=== PATIENT | female | born 1960 | race Caucasian/White ===

== ENCOUNTER 2017-03-25 10:22 | Emergency (ER) | payer OTHER ==
[2017-03-25 10:37] VITALS: O2SAT 98
[2017-03-25] MEDS ORDERED: Naproxen 550 mg Tab PO STA (10:57)
--- NOTE | 2017-03-25 11:04 | C.PDOC ---
History Of Present Illness 57 yr old female presents to the ER with complaints of back pain for the past 5 days. Patient reports the pain is right sided and feels like her sciatica. Patient states she missed work due to the pain is requesting a note. Denies new trauma, saddle anesthesia, fever, chest pain, SOB, nausea, vomiting, abdominal pain, constipation, dysuria, incontinence, weakness or numbness. Time Seen by Provider: 03/25/17 10:48 Chief Complaint (Nursing): Back Pain History Per: Patient History/Exam Limitations: no limitations Onset/Duration Of Symptoms: Days (5) Current Symptoms Are (Timing): Still Present Past Medical History Reviewed: Historical Data, Nursing Documentation, Vital Signs Vital Signs: Last Vital Signs Temp 97.8 F 03/25/17 11:30 Pulse 65 03/25/17 11:30 Resp 14 03/25/17 11:30 BP 127/89 03/25/17 11:30 Pulse Ox 98 03/25/17 11:30 - Medical History PMH: Anxiety, Arthritis, Depression, Hepatitis (C) Family History: States: No Known Family Hx - Social History Hx Tobacco Use: No Hx Alcohol Use: Yes (Uses alcohol occasionally for years) Hx Substance Use: No - Immunization History Hx Tetanus Toxoid Vaccination: No Hx Influenza Vaccination: No Hx Pneumococcal Vaccination: No Review Of Systems Except As Marked, All Systems Reviewed And Found Negative. Constitutional: Negative for: Fever Cardiovascular: Negative for: Chest Pain Respiratory: Negative for: Shortness of Breath Gastrointestinal: Negative for: Nausea, Vomiting, Abdominal Pain, Constipation Genitourinary: Negative for: Dysuria, Incontinence Musculoskeletal: Positive for: Back Pain (Right sided ) Neurological: Negative for: Weakness, Numbness Physical Exam - Physical Exam Appears: Non-toxic, No Acute Distress Skin: Warm, Dry, No Rash Head: Atraumatic, Normacephalic Eye(s): bilateral: Normal Inspection, PERRL, EOMI Oral Mucosa: Moist Neck: Normal, Normal ROM, Supple Chest: Symmetrical, No Tenderness Cardiovascular: Rhythm Regular, No Murmur Respiratory: Normal Breath Sounds, No Rales, No Rhonchi, No Stridor, No Wheezing Back: Paraspinal Tenderness (Right paraspinal ) Extremity: Normal ROM, No Calf Tenderness, No Swelling Pulses: Left Dorsalis Pedis: Normal, Right Dorsalis Pedis: Normal Neurological/Psych: Oriented x3, Normal Speech, Normal Motor, Normal Sensation ED Course And Treatment O2 Sat by Pulse Oximetry: 98 (RA ) Pulse Ox Interpretation: Normal Medical Decision Making Medical Decision Making: PLAN: * Naproxen PO * Flexeril PO * 1215: neuro intact, no saddle anesthesia, pt well appearing ambulatory. advise outpt f/u and return precautions. Disposition - Disposition Disposition: HOME/ ROUTINE Disposition Time: 11:13 Condition: STABLE Additional Instructions: please follow up with your doctor. return to er with worsening symptoms or concerns. Prescriptions: Cyclobenzaprine [Cyclobenzaprine HCl] 10 mg PO TID PRN #21 tab PRN Reason: Muscle Spasm Naproxen 500 mg PO BID PRN #14 tab PRN Reason: Pain, Mild (1-3) Instructions: Back Pain (ED) Forms: [facility] (Welsh), Work Excuse - Clinical Impression Clinical Impression: Low back pain - Scribe Statement The provider has reviewed the documentation as recorded by the Helio Davila Provider Attestation: All medical record entries made by the Helio were at my direction and personally dictated by me. I have reviewed the chart and agree that the record accurately reflects my personal performance of the history, physical exam, medical decision making, and the department course for this patient. I have also personally directed, reviewed, and agree with the discharge instructions and disposition.
[2017-03-25] MEDS ORDERED: Naproxen 550 mg Tab PO ONE (11:09)
[2017-03-25 11:34] VITALS: BP 127/89; PULSE 65; RESP 14; TEMP 97.8
== END 2017-03-25 11:37 | disposition home or self-care (01) ==
LOC: C.ER 10:22
DX: M54.5 Low back pain (principal)

== ENCOUNTER 2017-05-10 14:28 | Emergency (ER) | payer OTHER ==
[2017-05-10 15:00] VITALS: BP 133/82; PULSE 107; RESP 18; TEMP 98; O2SAT 96
--- NOTE | 2017-05-10 15:17 | C.PDOC ---
History Of Present Illness Patient is a 57 y/o female, with a Hx of depression, who presents to the ED requesting refill of Prozac 30mg daily. Patient states she is unable to refill as outpatient. Denies SI/HI, and states she does not want to be admitted. Patient has no other complaints at this time. Time Seen by Provider: 05/10/17 15:02 Chief Complaint (Nursing): Med Refill History Per: Patient History/Exam Limitations: no limitations Recent travel outside of the [place]: No Past Medical History Reviewed: Historical Data, Nursing Documentation, Vital Signs Vital Signs: Last Vital Signs Temp 98 F 05/10/17 14:57 Pulse 107 H 05/10/17 14:57 Resp 18 05/10/17 14:57 BP 133/82 05/10/17 14:57 Pulse Ox 96 05/10/17 15:30 - Medical History PMH: Anxiety, Arthritis, Depression, Hepatitis (C) Denies: HIV, HTN, Chronic Kidney Disease, Seizures, Sexually Transmitted Disease Surgical History: No Surg Hx Family History: States: Unknown Family Hx - Social History Hx Tobacco Use: No Hx Alcohol Use: Yes (Uses alcohol occasionally for years) Hx Substance Use: No - Immunization History Hx Tetanus Toxoid Vaccination: No Hx Influenza Vaccination: No Hx Pneumococcal Vaccination: No Review Of Systems Except As Marked, All Systems Reviewed And Found Negative. Physical Exam - Physical Exam Appears: Well, Non-toxic, No Acute Distress Skin: Normal Color, Warm, Dry Head: Atraumatic, Normacephalic Oral Mucosa: Moist Cardiovascular: Rhythm Regular, No Murmur Respiratory: Normal Breath Sounds, No Rales, No Rhonchi, No Wheezing Neurological/Psych: Oriented x3, Normal Speech, Normal Cognition ED Course And Treatment O2 Sat by Pulse Oximetry: 96 (Room air ) Pulse Ox Interpretation: Normal Disposition - Disposition Referrals: [facility] [Outside] Disposition: HOME/ ROUTINE Disposition Time: 15:15 Condition: STABLE Prescriptions: FLUoxetine [Prozac] 30 mg PO DAILY #21 cap Instructions: Depression (ED), Medicine Refill (ED) Forms: [facility] (Barbadian), Work Excuse - Clinical Impression Clinical Impression: Medication refill - Scribe Statement The provider has reviewed the documentation as recorded by the Scribe Kristen Moran All medical record entries made by the Scribe were at my direction and personally dictated by me. I have reviewed the chart and agree that the record accurately reflects my personal performance of the history, physical exam, medical decision making, and the department course for this patient. I have also personally directed, reviewed, and agree with the discharge instructions and disposition.
== END 2017-05-10 15:40 | disposition home or self-care (01) ==
LOC: C.ER 14:28
DX: Z76.0 Encounter for issue of repeat prescription (principal)

== ENCOUNTER 2017-07-27 08:22 | Inpatient (IN) | payer OTHER ==
[2017-07-27 08:22] VITALS: BMI 33.6
[2017-07-27] MEDS ORDERED: Naproxen 550 mg Tab PO STA (09:08)
[2017-07-27] MEDS ORDERED: Naproxen 550 mg Tab PO ONE (09:31)
--- NOTE | 2017-07-27 11:07 | C.PDOC ---
History Of Present Illness 57 yr old female with history of arthritis and depression presents to the ER with complaints of chronic low back pain for the last several years. patient states the pain has been worsening for the past several month, and that she has been using Aleve without significant relief. Patient also reports of feeling increasingly depressed recently. She was previously on Prozac, but states she stopped taking it in October. Patient denies SI, HI, abdominal pain, nausea/ vomiting/diarrhea, dysuria/hematuria, urinary retention, bowel/bladderm sensory changes in legs. Time Seen by Provider: 07/27/17 08:31 Chief Complaint (Nursing): Psychiatric Evaluation History Per: Patient History/Exam Limitations: no limitations Onset/Duration Of Symptoms: Persistent Current Symptoms Are (Timing): Still Present Severity: Moderate Previous Symptoms: Back Pain, Other (depression) Associated Symptoms: None. denies: Incontinence, New Weakness, New Numbness Past Medical History Reviewed: Historical Data, Nursing Documentation, Vital Signs Vital Signs: Last Vital Signs Temp 97.5 F L 08/03/17 06:17 Pulse 68 08/03/17 06:17 Resp 20 08/03/17 06:17 BP 109/59 L 08/03/17 06:17 Pulse Ox 97 08/05/17 08:04 - Medical History PMH: Anxiety, Arthritis, Back Problems, Depression, Hepatitis (C) Family History: States: No Known Family Hx - Social History Hx Tobacco Use: No Hx Alcohol Use: Yes (Uses alcohol occasionally for years) Hx Substance Use: No - Immunization History Hx Tetanus Toxoid Vaccination: No Hx Influenza Vaccination: No Hx Pneumococcal Vaccination: No Review Of Systems Except As Marked, All Systems Reviewed And Found Negative. Constitutional: Negative for: Fever, Chills Cardiovascular: Negative for: Chest Pain Respiratory: Negative for: Shortness of Breath Gastrointestinal: Negative for: Nausea, Vomiting, Abdominal Pain, Diarrhea Genitourinary: Negative for: Dysuria, Incontinence, Hematuria Musculoskeletal: Positive for: Back Pain (Low back pain) Skin: Negative for: Rash Neurological: Negative for: Weakness, Numbness Psych: Positive for: Depression. Negative for: Suicidal ideation Physical Exam - Physical Exam Appears: Well, Non-toxic, No Acute Distress, Other ((+) Flat affect) Skin: Normal Color, Warm, Dry, No Rash Head: Atraumatic, Normacephalic Oral Mucosa: Moist Neck: Normal, Normal ROM, No Midline Cervical Tenderness, No Paracervical Tenderness, No Step Off Deformity, Supple Cardiovascular: Rhythm Regular Respiratory: Normal Breath Sounds, No Rales, No Rhonchi, No Wheezing Gastrointestinal/Abdominal: Normal Exam, Bowel Sounds, Soft, No Tenderness Back: No CVA Tenderness, No Vertebral Tenderness, Paraspinal Tenderness (Right paraspinal lumbar tenderness) Extremity: Normal ROM Neurological/Psych: Oriented x3, Normal Motor, Normal Sensation Gait: Steady ED Course And Treatment - Laboratory Results Result Diagrams: 07/27/17 11:21 07/27/17 11:21 O2 Sat by Pulse Oximetry: 97 (RA) Pulse Ox Interpretation: Normal Progress Note: PLAN: Blood work, UA, UDS ordered and reviewed. Patient given PO Naprosyn and Valium for low back pain. 12:40pm- Patient medically cleared. Pending crisis. She states her back pain has improved and she feels better. 12 :58pm- Patient accepted for psychiatric admission for depression by Dr. Anderson. Disposition - Disposition Disposition: HOSPITALIZED Disposition Time: 12:58 Condition: STABLE - Clinical Impression Clinical Impression: Depression, Chronic low back pain - Scribe Statement The provider has reviewed the documentation as recorded by the Liaibe Chapincito Davila Provider Attestation: All medical record entries made by the Scribe were at my direction and personally dictated by me. I have reviewed the chart and agree that the record accurately reflects my personal performance of the history, physical exam, medical decision making, and the department course for this patient. I have also personally directed, reviewed, and agree with the discharge instructions and disposition. Decision To Admit - Pt Status Changed To: Hospital Disposition Of: Inpatient - Admit Certification Admit to Inpatient:: After my assessment, the patient will require hospitalization for at least two midnights. This is because of the severity of symptoms shown, intensity of services needed, and/or the medical risk in this patient being treated as an outpatient. - InPatient: Physician Admission Certification:: see notes - . Bed Request Type: Psychiatry Admitting Physician: Ayla Anderson Patient Diagnosis: Depression, Chronic low back pain
[2017-07-27 11:32] LABS: BASO % 0.7 % (0.0-2.0); EOS # 0.1 K/uL (0.0-0.7); EOS % 1.4 % (0.0-4.0); HEMATOCRIT 38.8 % (34.0-47.0); LYMPH # 2.1 K/uL (1.0-4.3); LYMPH % 36.2 % (20.0-40.0); MEAN CELL VOLUME 82.9 fL (81.0-99.0); MEAN CORPUSCULAR HEMOGLOBIN 27.3 pg (27.0-31.0); MEAN CORPUSCULAR HGB CONC 32.9 g/dL (33.0-37.0); MEAN PLATELET VOLUME 8.4 fL (7.2-11.7); MONO # 0.3 K/uL (0.0-0.8); MONO % 5.5 % (0.0-10.0); NRBC % 0.1 % (0.0-2.0); RED CELL DISTRIBUTION WIDTH 14.2 % (11.5-14.5); WHITE BLOOD COUNT 5.8 K/uL (4.8-10.8)
[2017-07-27 11:38] LABS: URINE BILIRUBIN NEGATIVE (NEGATIVE); URINE BLOOD NEGATIVE (NEGATIVE); URINE COLOR Yellow (YELLOW); URINE GLUCOSE (UA) NORMAL (Normal); URINE KETONE NEGATIVE (NEGATIVE); URINE LEUKOCYTE ESTERASE NEG Leu/uL (Negative); URINE PROTEIN NEGATIVE (NEGATIVE); URINE UROBILINOGEN NORMAL mg/dL (0.2-1.0); WBC URINE 1 /hpf (0-5)
[2017-07-27 11:59] LABS: ALB/GLOB RATIO 0.9 (1.0-2.1); ALKALINE PHOSPHATASE 71 U/L (38-126); ALT/SGPT 34 U/L (9-52); AST/SGOT 21 U/L (14-36); BILIRUBIN,TOTAL 0.5 mg/dL (0.2-1.3); BLOOD UREA NITROGEN 16 mg/dL (7-17); CALCIUM 8.8 mg/dl (8.6-10.4); CARBON DIOXIDE 28 mmol/L (22-30); CHLORIDE 104 mmol/L (98-107); GFR AFRICAN-AMERICAN > 60; GLUCOSE,RANDOM 86 mg/dL (65-105); POTASSIUM 4.2 mmol/L (3.6-5.2); SODIUM 139 mmol/L (132-148); TOTAL PROTEIN 7.7 g/dL (6.3-8.3)
[2017-07-27 12:31] LABS: ALCOHOL SERUM < 20 mg/dl (0-10)
--- NOTE | 2017-07-27 15:17 | PCM.BM ---
<Andrey Gaytan - Last Filed: 07/27/17 15:17> Treatment Plan Problems - Problems identified on initial assessmt Depression Date Initiated: 07/27/17 Time Initiated: 15:17 Assessment reference: NA Status: Active Anxiety Date Initiated: 07/27/17 Time Initiated: 15:17 Assessment reference: NA Status: Active Treatment assets and liabiliti Patient Assests: cooperative, ADL independent, negotiates basic needs, cognitively intact Patient Liabilities: live alone, financial problems, poor support system, substance abuse (alcohol, BAL 20), medical problems (Back pain, Arthritis) - Milieu Protocol Maintain good personal hygiene: daily Encourage regular showers, daily Remind patient to perform daily oral care, other Assist patient to perform ADL's (self) Conduct patient checks and document Observation sheet: Q15 minutes (for safety) Maintain personal safety: every shift Educate patient to report safety concerns to staff, every shift Monitor environment for contraband/sharps Medication safety: Monitor for expected outcome, potential side effects: every shift, Assess barriers to learning: every shift, Assess readiness for medication education: every shift <Emely Morocho - Last Filed: 07/29/17 10:42> Family Contact Family involvement: Famliy/SO not involved - Goals for Treatment Patient goals for treatment: "I need help." Discharge/Continuing Care - Education Needs Education Needs: Patient Medication, Patient Coping Skills - Discharge Discharge Criteria: Tolerates medication w/o severe side effects, Reduction of target symptoms Discharge to:: Home - Treatment Team Participation Discussed with Family/SO: No Was Patient/Family/SO present at Treatment Team Meeting: Yes <Ayla Anderson - Last Filed: 07/29/17 10:47> - Diagnosis (1) Major depressive disorder, recurrent severe without psychotic features Status: Acute Interventions: 07/29/17 10:46 * Assess/adjust medications daily and /or as needed * See patient on an individual basis 7x/week to assess level of depressive behaviors and stability * Discuss risks, benefits, side effects and alternatives of medications *
--- NOTE | 2017-07-27 16:31 | PCM.PSYCH ---
Initial Psychiatric Evaluation - Initial Psychiatric Evaluation Type of Admission: Voluntary Legal Status: Capacity Chief Complaint (in patient's own words): "I don't feel right" History of Present Illness and Precipitating Events: This is a 57 year old female who lives alone in [place]. She is employed and does billing. She was brought into the hospital for chronic back pain and feelings of depression. Patient reports previous inpatient psychiatric admission to [facility] in 2016 for depression. She follows up with [facility]. Patient reports that she "hasn't felt right" for about 1 year since her last psychiatric admission. She reports major stressors in her life that led to inpatient admission. She reports feelings of depression and anxiety, with decreased levels of: sleep, interest, energy, appetite, psychomotor ability. She states, "I feel empty. I have no goals." She reports that she was seeking outpatient care, but was discharged from the practice due to inability to keep appointments. She states her work schedule interfered with her appointments. She reports improvement in her symptoms when she "keeps busy" and when she was taking Prozac prescribed by outpatient psych. She reports that her symptoms worsen when she is at work and when she is home alone. She reports flight of ideas and racing thoughts at times when she is alone. Patient reports that she has had suicidal ideations, stating "I know I shouldnt hurt myself, but I want to." She denies any plan to commit suicide. She denies any homicidal ideations. She reports visual hallucinations at times, stating "Sometimes I see shadows at home that I know aren't really there." She denies any auditory hallucinations. She also reports paranoid delusions. Patient reports previous cocaine use 10 years ago and denies current use. She denies marijuana or heroin use. She reports alcohol use, approximately 2 beers per week. Past medical history: hepatitis C Past psychiatric history: MDD Family psychiatric history: uncle with schizophrenia Current Medications: Active Medications Generic Name Dose Route Start Last Admin Trade Name Freq PRN Reason Stop Dose Admin Pneumococcal Polyvalent Vaccine 0.5 ml 07/30/17 10:00 Pneumovax 23 Vaccine IM 07/30/17 10:01 .ONCE ONE Past Psychiatric History - Past Psychiatric History Previous Treatment History: Inpatient At [facility]: [facility] Nature of Treatment: MDD Pertinent Medical Hx (Current Medical&Sleep Prob, Allergies): Allergies Allergy/AdvReac Type Severity Reaction Status Date / Time No Known Allergies Allergy Verified 07/27/17 08:31 FLUoxetine [Prozac] 30 mg PO DAILY #21 cap 05/10/17 Review of Systems - Review of Systems All systems: reviewed and no additional remarkable complaints except - Psychiatric Psychiatric: Anxiety, Change in Appetite, Depression, Hopelessness, Paranoia, Visual Hallucinations Mental Status Examination - Personal Presentation Personal Presentation: Looks stated age - Affect Affect: Constricted - Motor Activity Motor Activity: Calm - Reliability in Providing Information Reliability in Providing Information: Poor, due to altered mood - Speech Speech: Organized - Mood Mood: Depressed, Anxious - Formal Thought Process Formal Thought Process: Hallucinations, Delusions - Hallucinations/Delusions Hallucinations: Visual Delusions: Persecution - Obsessions/Compulsions Obsessions: No Compulsions: No - Cognitive Functions Orientation: Person, Place, Situation, Time Sensorium: Alert Abstract Thinking: Bailey Estimate of Intelligence: Below average Judgement: Imparied, as evidence by: Poor judgement, Imparied, as evidence by: Lack of insight into illness Memory: Recent intact, as evidence by: Ability to recall events of the day, Remote intact, as evidenced by: Abilit to recall sig. life events - Risk Risk: Suicidal, Diminished functioning - Strength & Assets Inventory Strength & Assets Inventory: Intelligence - Limitations Limitations: Living alone DSM 5 DX - DSM 5 DSM 5 Diagnosis: Major depressive disorder recurrent severe with psychotic features CBT Psychoeducation Supportive therapy, group therapy, individual therapy Olanzapine 10 mg by mouth HS Prozac 40 mg PO Daily Trazodone 50 mg by mouth daily at bedtime - Recommended/Plan of Treatment Treatment Recommendations and Plan of Treatment: Major depressive disorder recurrent severe with psychotic features CBT Psychoeducation Supportive therapy, group therapy, individual therapy Olanzapine 10 mg by mouth HS Prozac 40 mg PO Daily Trazodone 50 mg by mouth daily at bedtime - Smoking Cessation Smoking Cessation Initiated: No
[2017-07-27] MEDS: Naproxen 550 mg Tab PO PRN (20:37)
--- NOTE | 2017-07-28 10:33 | PCM.PYCHPN ---
Psychiatric Progress Note - Psychiatric Progress Note Patient Chief Complaint: "I don't feel right" Mental Status Examination - Cognitive Function Orientation: Person, Place, Situation, Time - Mood Mood: Depressed, Anxious - Affect Affect: Constricted - Formal Thought Process Formal Thought Process: Hallucinations - Homicidal Ideation Homicidal Ideation: No
[2017-07-28] MEDS: Naproxen 550 mg Tab PO PRN (21:09)
--- NOTE | 2017-07-29 10:41 | PCM.PYCHPN ---
Psychiatric Progress Note - Psychiatric Progress Note Patient seen today, length of contact: 15 min Patient Chief Complaint: "I don't feel right" Problems Identified/Issues Discussed: Patient seen and evaluated, chart reviewed and discussed with the nurse. Patient remained isolated, confined and withdrawn. Patient reports depressed mood and feelings of hopelessness and helplessness. She reports that she is alone and doesn't have any friends or family members to talk to. She is taking medication and denies any side effects. She needs more time for stabilization. Supportive therapy and psychoeducation were given. Medication Change: Yes (increase Prozac) Medical Record Reviewed: Yes Mental Status Examination - Cognitive Function Orientation: Person, Place, Situation, Time Memory: Intact Attention: WNL Concentration: Poor Association: WNL Fund of Knowledge: Poor - Mood Mood: Depressed, Anxious - Affect Affect: Constricted - Formal Thought Process Formal Thought Process: No Impairment - Suicidal Ideation Suicidal Ideation: No - Homicidal Ideation Homicidal Ideation: No Goal/Treatment Plan - Goal/Treatment Plan Need for Continued Stay: Severe depression anxiety, Severe functional impairment Progress Toward Problem(s) and Goals/Treatment Plan: Major depressive disorder recurrent severe with psychotic features CBT Psychoeducation Supportive therapy, group therapy, individual therapy Prozac 40 mg PO Daily Trazodone 50 mg by mouth daily at bedtime Neurontin 100mg po TID Hydroxyzine 25 mg PO Q6 hr prn - Smoking Cessation Smoking Cessation Initiated: No
[2017-07-30] MEDS ORDERED: Influenza Vaccine 60 mcg/0.5 mL SYR (4YR UP) IM ONE (10:00)
[2017-07-30] MEDS ORDERED: Pneumococcal 23-Valent Vaccine IM ONE (10:00)
--- NOTE | 2017-07-30 10:56 | PCM.PYCHPN ---
Psychiatric Progress Note - Psychiatric Progress Note Patient seen today, length of contact: 16 min Patient Chief Complaint: "I'm tired" Problems Identified/Issues Discussed: This patient was seen, chart reviewed, and case discussed with staff. Patient and staff report no events overnight. She states she had "okay sleep." She still reports depressed mood but reports improvement in her feelings of hopelessness. She reports concern due to being in the hospital and hopes to be discharged soon. She denies any auditory or visual hallucinations. She denies any feelings of paranoia. She denies any suicidal or homicidal ideations. Patient appears disheveled but appropriately dressed. She is cooperative. She has limited social interactions but was encouraged to participate in unit activities. Patient is taking medications and denies any side effects. Symptoms are improving but need more time to stabilize. After care discussed, support and psychoeducation given. Medication Change: Yes (start remeron) Medical Record Reviewed: Yes Mental Status Examination - Cognitive Function Orientation: Person, Place, Situation, Time Memory: Intact Attention: WNL Concentration: Poor Association: WNL Fund of Knowledge: Poor - Mood Mood: Depressed, Anxious - Affect Affect: Constricted - Speech Speech: Soft - Formal Thought Process Formal Thought Process: No Impairment - Suicidal Ideation Suicidal Ideation: No - Homicidal Ideation Homicidal Ideation: No Goal/Treatment Plan - Goal/Treatment Plan Need for Continued Stay: Severe depression anxiety, Severe functional impairment Progress Toward Problem(s) and Goals/Treatment Plan: Major depressive disorder recurrent severe with psychotic features CBT Psychoeducation Supportive therapy, group therapy, individual therapy Prozac 40 mg PO Daily Trazodone 50 mg by mouth daily at bedtime Neurontin 100 mg po TID Remeron 15 mg PO QHS Hydroxyzine 25 mg PO Q6 hr prn - Smoking Cessation Smoking Cessation Initiated: No
[2017-07-30] MEDS ORDERED: Midazolam 2 MG/2 ML VIAL ONE (11:08)
[2017-07-30] MEDS ORDERED: Propofol 10 mg/ml Inj (20 ML) ONE (11:09)
--- NOTE | 2017-08-01 08:59 | PCM.PYCHPN ---
Psychiatric Progress Note - Psychiatric Progress Note Patient seen today, length of contact: 16 min Patient Chief Complaint: "I feel better" Problems Identified/Issues Discussed: This patient was seen, chart reviewed, and case discussed with staff. Patient reports she slept well after taking nighttime medications, but was very irritable and anxious yesterday. She felt depressed yesterday that she did not have any visitors, but today reports a decrease in her feelings of depression. She continues to report improvement in her feelings of hopelessness. She denies any auditory or visual hallucinations. She denies any feelings of paranoia. She denies any suicidal or homicidal ideations. Patient appears disheveled but appropriately dressed. She is cooperative. She has limited social interactions and has increased participation in unit activities. Patient is taking medications and denies any side effects. Symptoms are improving but need more time to stabilize. After care discussed, support and psychoeducation given. Medication Change: Yes (start remeron) Medical Record Reviewed: Yes Mental Status Examination - Cognitive Function Orientation: Person, Place, Situation, Time Memory: Intact Attention: WNL Concentration: Poor Association: WNL Fund of Knowledge: Poor - Mood Mood: Depressed, Anxious - Affect Affect: Constricted, Depressed - Speech Speech: Soft - Formal Thought Process Formal Thought Process: No Impairment - Suicidal Ideation Suicidal Ideation: No - Homicidal Ideation Homicidal Ideation: No Goal/Treatment Plan - Goal/Treatment Plan Need for Continued Stay: Severe depression anxiety, Severe functional impairment Progress Toward Problem(s) and Goals/Treatment Plan: Major depressive disorder recurrent severe with psychotic features CBT Psychoeducation Supportive therapy, group therapy, individual therapy Prozac 40 mg PO Daily Trazodone 50 mg by mouth daily at bedtime Neurontin 100 mg po TID Remeron 15 mg PO QHS Hydroxyzine 25 mg PO Q6 hr prn
[2017-08-02] MEDS ORDERED: Magnesium Hydroxide Susp 30 ml UD PO PRN (17:06)
[2017-08-03 06:19] VITALS: BP 109/59; PULSE 68; RESP 20; TEMP 97.5
--- NOTE | 2017-08-03 11:19 | PCM.PYCHDC ---
Mental Status Examination - Mental Status Examination Orientation: Person, Place, Situation, Time Memory: Intact Mood: Neutral Affect: Constricted Speech: Soft Attention: WNL Concentration: WNL Association: WNL Fund of Knowledge: WNL Formal Thought Process: No Impairment Description of patient's judgement and insight: good, fair Psychotic Thoughts and Behaviors: denies any AVH Suicidal Ideation: No Current Homicidal Ideation?: No Discharge Summary - Discharge Note Reason for Hospitalization: This is a 57 year old female who lives alone in [place]. She is employed and does billing. She was brought into the hospital for chronic back pain and feelings of depression. Patient reports previous inpatient psychiatric admission to [facility] in 2016 for depression. She follows up with [facility]. Patient reports that she "hasn't felt right" for about 1 year since her last psychiatric admission. She reports major stressors in her life that led to inpatient admission. She reports feelings of depression and anxiety, with decreased levels of: sleep, interest, energy, appetite, psychomotor ability. She states, "I feel empty. I have no goals." She reports that she was seeking outpatient care, but was discharged from the practice due to inability to keep appointments. She states her work schedule interfered with her appointments. She reports improvement in her symptoms when she "keeps busy" and when she was taking Prozac prescribed by outpatient psych. She reports that her symptoms worsen when she is at work and when she is home alone. She reports flight of ideas and racing thoughts at times when she is alone. Patient reports that she has had suicidal ideations, stating "I know I shouldnt hurt myself, but I want to." She denies any plan to commit suicide. She denies any homicidal ideations. She reports visual hallucinations at times, stating "Sometimes I see shadows at home that I know aren't really there." She denies any auditory hallucinations. She also reports paranoid delusions. Patient reports previous cocaine use 10 years ago and denies current use. She denies marijuana or heroin use. She reports alcohol use, approximately 2 beers per week. Psychiatric History (includes Medical, Family, Personal Hx): MDD Consultations:: List each consultation separately and include: 1. Reason for request. 2. Findings. 3. Follow-up Summary of Hospital Course include:: 1. Description of specific treatment plan utilized for patients during their course of treatmen. 2. Summarize the time- course for resolution of acute symptoms and/or regressed behaviors. 3. Describe issues identified and worked on during hospitalization. 4. Describe medication utilized. 5. Describe medical problems identified and treated. 6. Reassessment of suicide risk Summary of Hospital Course: This is a 57 year old female who lives alone in [place]. She is employed and does billing. She was brought into the hospital for chronic back pain and feelings of depression. Patient reports previous inpatient psychiatric admission to [facility] in 2016 for depression. She follows up with [facility]. Patient reports that she "hasn't felt right" for about 1 year since her last psychiatric admission. She reports major stressors in her life that led to inpatient admission. She reports feelings of depression and anxiety, with decreased levels of: sleep, interest, energy, appetite, psychomotor ability. She states, "I feel empty. I have no goals." She reports that she was seeking outpatient care, but was discharged from the practice due to inability to keep appointments. She states her work schedule interfered with her appointments. She reports improvement in her symptoms when she "keeps busy" and when she was taking Prozac prescribed by outpatient psych. She reports that her symptoms worsen when she is at work and when she is home alone. She reports flight of ideas and racing thoughts at times when she is alone. Patient reports that she has had suicidal ideations, stating "I know I shouldnt hurt myself, but I want to." She denies any plan to commit suicide. She denies any homicidal ideations. She reports visual hallucinations at times, stating "Sometimes I see shadows at home that I know aren't really there." She denies any auditory hallucinations. She also reports paranoid delusions. Patient reports previous cocaine use 10 years ago and denies current use. She denies marijuana or heroin use. She reports alcohol use, approximately 2 beers per week. Past medical history: hepatitis C Past psychiatric history: MDD Family psychiatric history: uncle with schizophrenia - Diagnosis (1) Major depressive disorder, recurrent severe without psychotic features Current Visit: Yes Status: Acute - Final Diagnosis (DSM 5) Condition upon Discharge: GOOD DSM 5: Major depressive disorder recurrent severe with psychotic features Disposition: HOME/ ROUTINE Follow-up Treatment Plan: Major depressive disorder recurrent severe with psychotic features CBT Psychoeducation Supportive therapy, group therapy, individual therapy Prozac 40 mg PO Daily Trazodone 50 mg by mouth daily at bedtime Neurontin 100 mg po TID Remeron 15 mg PO QHS Hydroxyzine 25 mg PO Q6 hr prn Prescriptions/Medication Reconciliation: FLUoxetine [Prozac] 40 mg PO DAILY #30 cap Gabapentin [Neurontin] 100 mg PO BID #60 cap Mirtazapine [Remeron] 15 mg PO HS #30 tab traZODone [Desyrel] 50 mg PO HS PRN #30 tab PRN Reason: Insomnia - Smoking Cessation Smoking Cessation Medication prescribed: No - Antipsychotic Medications Pt discharged on 2 or more routine antipsychotic medications: No
[2017-08-05 08:04] VITALS: O2SAT 97
== END 2017-08-03 12:25 | disposition home or self-care (01) | DRG 885 ==
LOC: C.ER 08:22 → C.9E 12:57 → C.5E 13:50
PROVIDERS: ADMIT Psychiatry & Neurology Psychiatry; ATTEND Psychiatry & Neurology Psychiatry
PROC: GZHZZZZ Group Psychotherapy (ICD-10-PCS; principal; 2017-07-27)
PROC: GZ58ZZZ Individual Psychotherapy, Cognitive-Behavioral (ICD-10-PCS; 2017-07-27)
PROC: GZ56ZZZ Individual Psychotherapy, Supportive (ICD-10-PCS; 2017-07-27)
DX: F33.3 Major depressive disorder, recurrent, severe with psychotic symptoms (principal); R45.851 Suicidal ideations; B19.20 Unspecified viral hepatitis C without hepatic coma; F41.9 Anxiety disorder, unspecified; G89.29 Other chronic pain; M54.5 Low back pain; Z79.899 Other long term (current) drug therapy; Z81.8 Family history of other mental and behavioral disorders